=== PATIENT | female | born 1940 | race Caucasian/White ===

== ENCOUNTER 2022-11-27 06:06 | Inpatient (IN) ==
--- NOTE | 2022-10-10 12:06 | PAT Medication Instructions ---
Medication Instructions Date of Service October 10, 2022 Home Medications apixaban 5 mg tablet (Eliquis) 5 mg PO BID aspirin 81 mg tablet,delayed release 81 mg PO QAM atenolol 50 mg tablet 50 mg PO QAM calcium 600 mg capsule 600 mg PO QAM insulin aspart U-100 100 unit/mL subcutaneous solution (Novolog U-100 Insulin aspart) 1 sliding scale dose subcut USEASDIRECTD nitroglycerin 0.4 mg sublingual tablet 0.4 mg sublingual UD PRN cp omega-3 fatty acids 2,000 mg PO QAM pramipexole 0.25 mg tablet 0.5 mg PO QPM ramipril 10 mg capsule 10 mg PO QAM rosuvastatin 10 mg tablet (Crestor) 10 mg PO QAM Continue as directed nitroglycerin 0.4 mg sublingual tablet 0.4 mg sublingual UD PRN cp (if needed) ASK your prescriber and surgeon apixaban 5 mg tablet (Eliquis) 5 mg PO BID STOP taking 2 weeks before surgery omega-3 fatty acids 2,000 mg PO QAM DO NOT take the morning of surgery calcium 600 mg capsule 600 mg PO QAM ramipril 10 mg capsule 10 mg PO QAM Take morning of surgery With a small sip of water, OTHERWISE NOTHING TO EAT OR DRINK AFTER MIDNIGHT: aspirin 81 mg tablet,delayed release 81 mg PO QAM (unless surgeon directed otherwise) atenolol 50 mg tablet 50 mg PO QAM rosuvastatin 10 mg tablet (Crestor) 10 mg PO QAM Take evening before surgery pramipexole 0.25 mg tablet 0.5 mg PO QPM Insulin Dependent Diabetic Patients insulin aspart U-100 100 unit/mL subcutaneous solution (Novolog U-100 Insulin aspart) 1 sliding scale dose subcut USEASDIRECTD (check with prescriber for instructions regarding insulin pump settings for evening prior to and morning of surgery- typically insulin pump is set to basal rate after midnight prior to surgery and no boluses are to be given after midnight day of surgery) Other Notes If you have any questions please call us at [phone] or [phone] or [phone] or [phone]
--- NOTE | 2022-10-17 11:05 | Anesthesiology Consultation ---
Date of Service October 17, 2022 Assessment & Plan (1) Encounter for pre-operative examination: - Check BSG AM DOS - COVID screening: Per assessment on 10/17: No known COVID-19 positive contacts or current COVID-19 related symptoms. Travel screen negative. Patient vaccinated. At surgeon discretion if preop Covid testing being done. - Eliquis instructions: per surgeon/prescriber - Cardiology visit (09/28/22): "Patient presents for preoperative cardiac clearance, follow up of coronary artery disease and paroxysmal atrial fibrillation.. Lexiscan Cardiolite stress test reviewed. This was negative for ischemia or infarct.. Left heart catheterization is not indicated in regard to this study.. Additional cardiac testing is not required prior to surgery. She is does not require any cardiac interventions prior to surgery. She has no evidence of volume overload or heart failure.. She does continue to perform activities at or above 4 METS.. 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 Awaiting most recent carotid imaging (Dr. Alonso Graff/Hakeem mincing machine operator). Chart Review Chart Review: Patient seen in Pre Admission Testing History Surgery Operation Date: 10/31/22 07:45 Proposed Procedures p L4-S1 Decompression and Fusion, Spinal Cord Monitoring - Raúl Figueroa, Height/Weight Height: 5 ft 5 in Weight: 93.3 kg Allergies Allergy/AdvReac Type Severity Reaction Status Date / Time oxycodone [From Percocet] Allergy Mild feels like Verified 10/06/22 13:11 bugs are crawling Medications Home Medications Medication Instructions Recorded Confirmed Last Taken apixaban 5 mg tablet (Eliquis) 5 mg PO BID 10/06/22 10/06/22 Unknown aspirin 81 mg tablet,delayed 81 mg PO QAM 10/06/22 10/06/22 Unknown release atenolol 50 mg tablet 50 mg PO QAM 10/06/22 10/06/22 Unknown calcium 600 mg capsule 600 mg PO QAM 10/06/22 10/06/22 Unknown insulin aspart U-100 100 unit/mL 1 sliding scale dose subcut 10/06/22 10/06/22 Unknown subcutaneous solution (Novolog USEASDIRECTD U-100 Insulin aspart) nitroglycerin 0.4 mg sublingual 0.4 mg sublingual UD PRN cp 10/06/22 10/06/22 Unknown tablet omega-3 fatty acids 2,000 mg PO QAM 10/06/22 10/06/22 Unknown pramipexole 0.25 mg tablet 0.5 mg PO QPM 10/06/22 10/06/22 Unknown ramipril 10 mg capsule 10 mg PO QAM 10/06/22 10/06/22 Unknown rosuvastatin 10 mg tablet (Crestor) 10 mg PO QAM 10/06/22 10/06/22 Unknown Past Medical History Medical History Aortic stenosis Mild aortic stenosis per 08/2022 echo Arthritis CAD (coronary artery disease) Stent x1 (2020) Follows by Vandana Gallardo Diabetes mellitus, type [address] Diabetic neuropathy Diabetic retinopathy has recieved a shot in eye for tx History of COVID-19 2019- 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 loss of taste/smell Hyperlipidemia Hypertension Insulin pump in place Paroxysmal atrial fibrillation Per cardiology records Taking Eliquis Restless leg syndrome Spinal stenosis Exercise / Class Metabolic Activity III < 4 Walking/Shop/Light housework (one FS (no CP, + SOB)) Past Family History Family History Other No family history of adverse response to anesthesia Past Surgical History Surgical History H/O total hysterectomy History of anesthesia reaction slow to wake up History of appendectomy History of colonoscopy History of heart artery stent Stent x1 (2020) History of repair of rotator cuff rt History of tonsillectomy History of tooth extraction Past Anesthesia History No Family Hx of Anesthesia Complications and Other ("slow to wake") History of PONV No Hx of PONV and Hx of Motion Sickness Social History Smoking Status: Never smoker Do You Dip or Chew Tobacco: No Hx Alcohol Use: No substance use type: does not use Review of Systems Patient denies chest pain, shortness of breath, fever, chills, cough, wheezing, palpitations. Physical Exam Vital Signs VITALS BP 128/51 P 62 TEMP WNL SP02 96%RA RESP 18 PHYSICAL Mildly decreased cervical extension range of motion. Full TMJ range of motion. TMD 3.5 finger breaths Mallampati Score 2 Dentition: full upper/lower dentures Lungs: clear throughout to auscultation Cardiac: regular rate and rhythm, distant heart sounds, I/ systolic murmur with faint left sided carotid radiation vs bruit Spine: normal Extremities: no LE edema Short neck Lab Results Anesthesia Preop Results Results Anesthesia Widget: WBC 8.27 K/ul (4.8-10.8) 10/17/22 Hgb 13.1 g/dl (12.0-16.0) 10/17/22 Hct 40.3 % (37.0-47.0) 10/17/22 Plt 226 K/uL (130-400) 10/17/22 Na 138 mmol/L (136-145) 10/17/22 K 4.3 mmol/L (3.5-5.1) 10/17/22 Cl 105 mmol/L (98-107) 10/17/22 CO2 29 mmol/L (21-32) 10/17/22 BUN 22 mg/dl (6-23) 10/17/22 Creat 0.90 mg/dl (0.6-1.2) 10/17/22 Glucose Level 144 mg/dl (70-99(Fasting)) H 10/17/22 PT 10.8 Seconds (9.0-12.0) 10/17/22 PTT 25.2 Seconds (21.0-31.0) 10/17/22 INR 1.0 (0.9-1.1) 10/17/22 HA1c 8.7 % (4.5-5.6) H 10/17/22 Urine Color Yellow 10/17/22 Urine Appearance Clear (Clear) 10/17/22 Urine pH 6.5 (4.5-7.5) 10/17/22 Urine Specific Sumner 1.015 (1.000-1.030) 10/17/22 Urine Protein Negative (Negative) 10/17/22 Urine Glucose (UA) Negative (Negative) 10/17/22 Urine Ketones Negative (Negative) 10/17/22 Urine Blood Negative (Negative) 10/17/22 Urine Nitrite Negative (Negative) 10/17/22 Urine Bilirubin Negative (Negative) 10/17/22 Urine Urobilinogen Negative (Negative) 10/17/22 Urine Leukocyte Esterase Negative (Negative) 10/17/22 Blood Type A Negative 10/17/22 Antibody Screen NEGATIVE 10/17/22 Testing Laboratory Results Surgeon's office made aware of elevated A1C* Electrocardiogram Date: 09/07/22 SB at 59bpm. "Within normal limits" Chest X-Ray Date: 10/17/22 FINDINGS: PA and lateral chest radiographs are obtained. No prior studies are available for comparison at the time of dictation. The cardiomediastinal silhouette is unremarkable noting atherosclerotic calcification of the thoracic aorta. The lungs and pleural spaces are clear noting bibasilar scarring/atelectasis. There is no pneumothorax. The skeletal structures are osteopenic. The bony thorax appears intact. Degenerative change and hyperkyphosis is noted in the thoracic spine. IMPRESSION: No active disease in the chest. Echocardiogram Date: 09/06/22 EF 60 to 65%. Wall motion is normal. No regional motion abnormality. Mild MR. Mild aortic stenosis (TASHI 1.64-1.7cm2, MG 11.0 mmhg). Stress Test Date: 09/26/22 Type: nuclear Myocardial perfusion imaging normal. SPECT images demonstrate normal radiotracer uptake across all myocardial segments during both rest and stress imaging. LVEF 72%. No LV RWMA. Lexiscan stress EKG not indicative of ischemia. Cardiac Catheterization Date: 06/25/20 60 to 70% proximalmid LAD reduced to 0% after PTCA and placement of Xience MISA postdilated with balloon. 30% mid RCA. COVID-19 Risk Screen Screening Information COVID-19 Screen Date: 10/17/22 Exposure 21 Days Family/Household +COVID Last 21 Days: No Exposure 10 Days Any COVID Exposure Last 10 Days: No Symptoms Last 10 Days Experienced COVID Sx Last 10 Days: No + COVID 0-90 Days COVID + in Last 0-90 Days: No
[~2022-11-27 06:06] MED LIST: CeleBREX 200 MG CAP PO SCH; GABAPENTIN 300 MG CAP PO SCH; LR 15ML/HR IV SCH; ceFAZolin 2000MG 2,000 MG/15 ML SYR IV SCH
[2022-11-27] MEDS ORDERED: ATROPINE SULFATE 0.1 MG/ML 10ML SYR IV PRN (06:44)
[2022-11-27] MEDS ORDERED: ePHEDrine sulfate 50 MG/ML AMP IV PRN (06:44)
[2022-11-27] MEDS ORDERED: ONDANSETRON INJ 2 MG/ML 2 ML VIAL IV PRN ×2 (06:44→11:04)
[2022-11-27] MEDS ORDERED: DEXAMETHASONE SOD INJ 4 MG/ML VIAL ONE (06:51)
[2022-11-27] MEDS ORDERED: ROCURONIUM BROMIDE 10 MG/ML 5 ML VIAL IV ONE ×3 (06:51→08:13)
[2022-11-27] MEDS ORDERED: ONDANSETRON INJ 2 MG/ML 2 ML VIAL ONE (06:51)
[2022-11-27] MEDS ORDERED: PROPOFOL IV EMULSION 10 MG/ML 20 ML VIAL IV ONE (06:51)
[2022-11-27] MEDS ORDERED: fentaNYL citrate PF 100 MCG/2 ML VIAL ONE (06:51)
[2022-11-27] MEDS ORDERED: LIDOCAINE 2% 2 ML VIAL/AMP(20MG/ML) INFIL ONE ×2 (06:51)
[2022-11-27] MEDS ORDERED: SUGAMMADEX SODIUM 200 MG/2 ML VIAL IV ONE (06:51)
[2022-11-27] MEDS ORDERED: MIDAZOLAM HCL 1 MG/ML 2ML VIAL ONE (06:51)
[2022-11-27] MEDS ORDERED: BUPIVACAINE/EPINEPHRINE 0.25% 1:200,000 30 ML VIAL ONE (06:57)
[2022-11-27] MEDS ORDERED: ceFAZolin 330 MG/ML 1 GM VIAL ONE (06:57)
--- NOTE | 2022-11-27 07:32 | History & Physical Bridge Note ---
Date of Service November 27, 2022 History & Physical Bridge Note I have examined the patient, reviewed the History & Physical and in the interval since the performance of the History & Physical I have noted the following changes of clinical significance: no changes noted
--- NOTE | 2022-11-27 07:34 | History & Physical Report ---
Date of Service November 27, 2022 Assessment & Plan (1) Neurogenic claudication due to lumbar spinal stenosis: Plan: L4-S1 decompression and fusion History of Present Illness Chief Complaint: Back and leg pain Primary Care Provider: Kymberly Lawson This is an 82-year-old female who presents with persistent back and leg pain after failing since course of nonoperative care she is here for surgical invention. Allergies Allergy/AdvReac Type Severity Reaction Status Date / Time oxycodone [From Percocet] Allergy Mild feels like Verified 11/27/22 06:24 bugs are crawling Home Medications Medication Instructions Recorded Confirmed Type apixaban 5 mg tablet (Eliquis) 5 mg PO BID 10/06/22 11/27/22 History aspirin 81 mg tablet,delayed 81 mg PO QAM 10/06/22 11/27/22 History release atenolol 50 mg tablet 50 mg PO QAM 10/06/22 11/27/22 History calcium 600 mg capsule 600 mg PO QAM 10/06/22 11/27/22 History insulin aspart U-100 100 unit/mL 1 sliding scale dose subcut 10/06/22 11/27/22 History subcutaneous solution (Novolog USEASDIRECTD U-100 Insulin aspart) nitroglycerin 0.4 mg sublingual 0.4 mg sublingual UD PRN cp 10/06/22 11/27/22 History tablet omega-3 fatty acids 2,000 mg PO QAM 10/06/22 11/27/22 History pramipexole 0.25 mg tablet 0.5 mg PO QPM 10/06/22 11/27/22 History ramipril 10 mg capsule 10 mg PO QAM 10/06/22 11/27/22 History rosuvastatin 10 mg tablet (Crestor) 10 mg PO QAM 10/06/22 11/27/22 History Past Med/Surg History Medical History Aortic stenosis Mild aortic stenosis per 08/2022 echo Arthritis CAD (coronary artery disease) Stent x1 (2020) Follows by Vandana Gallardo Diabetes mellitus, type [address] Diabetic neuropathy Diabetic retinopathy has recieved a shot in eye for tx 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 Hyperlipidemia Hypertension Insulin pump in place Paroxysmal atrial fibrillation Per cardiology records Taking Eliquis Restless leg syndrome Spinal stenosis Surgical History H/O total hysterectomy History of anesthesia reaction slow to wake up History of appendectomy History of colonoscopy History of heart artery stent Stent x1 (2020) History of repair of rotator cuff rt History of tonsillectomy History of tooth extraction Family History Other No family history of adverse response to anesthesia Social History Smoking Status: Never smoker Second Hand Exposure: No; Do You Dip or Chew Tobacco: No; Hx Alcohol Use: No 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
[2022-11-27] MEDS ORDERED: FLOSEAL HEMOSTATIC MATRIX 10ML TOP ONE (08:21)
--- NOTE | 2022-11-27 09:51 | Operative Report ---
Post Operative Report Pre & Post Diagnosis Operation Date: 11/27/22 07:45 Pre-Op Diagnosis: Lumbar Region Spinal Stenosis with Neurogenic Claudication Post-Op Diagnosis: Lumbar Region Spinal Stenosis with Neurogenic Claudication I identified the patient and participated in the time-out.: Yes Procedure Operation Date: 11/27/22 07:45 Actual Procedures 1. Lumbar decompression bilaterally facetectomies and foraminotomies L3-L4, L4- 5 and L5-S1. #2 posterior spinal fusion L4-L5 L5-S1. #3 placed posterior instrumentation L4-S1. #4 interbody fusion L4-5. #5 placement Spira 12 x 26 mm at L4-5 per #6 placement locally harvested morselized autograft and posterior gutters. #7 placement of I factor plan of the test interbody space and posteri or gutters. Surgeon Raúl Figueroa, DO Transportation Escort none Estimated Blood Loss 100 Findings See Below Patient is 5 foot 5 weighing over 93 kg with a BMI in excess of 34. Patient's body of this did contribute to significant technical difficulty required deepest retractors and longer instruments in order to perform her procedure. This at least 50% increased operative time. Specimens none Indications This is an 82-year-old female who presents above-mentioned diagnosis after failing since course of nonoperative care is here for surgical invention. Description of Procedure Patient was met with identified informed consent obtained. Patient was then taken to the operative suite underwent a patient placed in a prone position the [facility] top Donte frame. All bony promises well-padded eyes inspected to ensure no external pressure placed upon the. This point lumbar spine was prepped and draped in a sterile fashion. Sharp dissection with the assistance of Bovie cautery form down to and exposing the lamina and transverse processes of L4-L5 and the sacral ala bilaterally. From caudal to cephalad fashion complete laminectomy of L5 L4 partial laminectomy of L3 was performed including bilateral medial facetectomies and foraminotomies addressing severe spinal stenosis. Pedicle screws were then placed in L4-L5 and S1 levels bilaterally with assistance of fluoroscopy and the properly sized duane placed. By way of transforaminal approach on the right a complete discectomy of L4-L5 was per formed endplates guided to subcortically bone and a 12 x 26 mm Spira cage with I factor tapped in position. The rods were then locked into final position bilaterally. The transverse processes of L4-5 and the sacral ala burred to subcortical bleeding bone. I factor bone of the test and locally harvested morselized autograft was placed in the posterior gutters. 15 round KHANH drain inserted. The incision was then closed with 1 Vicryl to fascia 2-0 Vicryl subcutaneously and 4 Monocryl for final skin closure. Steri-Strips sterile dressing placed. Patient waken taken to PACU stable condition. Please note spinal cord monitoring visualized at the procedure no changes noted. I attest to the content of the Intraoperative Record and any orders documented therein. Any exceptions are noted below.
[2022-11-27] MEDS: fentaNYL citrate PF 100 MCG/2 ML VIAL IV PRN ×4 (10:04→10:25)
--- NOTE | 2022-11-27 10:17 | Fluoroscopy Report ---
FL lumbar spine 2-3V CLINICAL HISTORY: L4-S1 DECOMPRESSION FUSION WITH INTERBODY COMPARISON STUDY: None. FLUOROSCOPY TIME: 25 seconds FLUOROSCOPY IMAGES: 2 Ka,r: 17.3 mGy FINDINGS: Posterior decompression and fusion from L4 through S1 with pedicle screws and rods. The wai dware appears intact. An L4-[address]. IMPRESSION: Fluoroscopic assistance as above. ACT 112: Negative or not required by law. Electronically signed by: Christophe Arroyo M.D. 11/27/2022 10:15 AM
--- NOTE | 2022-11-27 11:01 | Anesthesiology Progress Note ---
Date of Service November 27, 2022 Anesthesia Post Procedure Vital Signs Vital Signs: Temp Pulse Pulse Resp BP Pulse Ox O2 Del Method 11/27/22 10:50 98.1 F 55 L 13 135/58 L 99 Nasal Cannula 11/27/22 10:20 55 L 10 L 139/45 L 100 Oxymask 11/27/22 10:10 98.1 F 56 L 10 L 144/59 H 100 Oxymask 11/27/22 10:40 98.1 F 54 L 11 L 120/47 L 91 Nasal Cannula 11/27/22 10:30 59 L 12 123/54 L 100 Oxymask 11/27/22 10:00 98.1 F 58 L 12 140/66 99 Oxymask 11/27/22 09:54 98.1 F 67 12 128/46 L 99 Oxymask 11/27/22 06:28 Room Air 11/27/22 06:28 97.7 F 65 18 140/60 98 Room Air O2 Flow Rate 11/27/22 10:50 2 11/27/22 10:20 3 11/27/22 10:10 3 11/27/22 10:40 2 11/27/22 10:30 2 11/27/22 10:00 4 11/27/22 09:54 5 11/27/22 06:28 11/27/22 06:28 Pain Intensity Back: Pain Intensity: 5 Transfer of Care Handoff Completed per policy Notes Mental Status: alert / awake / arousable and participated in evaluation Patient Amnestic to Procedure: Yes Nausea / Vomiting: adequately controlled Pain: adequately controlled Airway Patency, RR, SpO2: stable & adequate BP & HR: stable & adequate Hydration State: stable & adequate Anesthetic Complications: no major complications apparent and Pt Satisfied with anesthetic care
[2022-11-27] MEDS ORDERED: hydrOXYzine HCl 25 MG TAB PO PRN (11:04)
[2022-11-27] MEDS ORDERED: traMADol HCL 50 MG TABLET PO PRN (11:04)
[2022-11-27] MEDS ORDERED: NITROGLYCERIN SL 0.4 MG/TAB TAB SL PRN (11:04)
[2022-11-27] MEDS ORDERED: FAMOTIDINE 20 MG TAB PO PRN (11:04)
[2022-11-27] MEDS ORDERED: ACETAMINOPHEN 500 MG TAB PO PRN (11:04)
[2022-11-27] MEDS ORDERED: SOD PHOSPHATE/SOD BIPHOSPHATE ENEMA 132 ML BTL PR PRN (11:04)
[2022-11-27] MEDS ORDERED: bisacodyL 10 MG SUPP PR PRN (11:04)
[2022-11-27] MEDS ORDERED: NALOXONE HCL 0.4 MG/1 ML VIAL/CARP IV PRN (11:04)
[2022-11-27] MEDS ORDERED: DO NOT ADMINISTER FLU VACCINE PRN (11:04)
[2022-11-27] MEDS ORDERED: PROMETHAZINE HCL 12.5 MG in SODIUM CHLORIDE 0.9% 50 ML IV PRN (11:04)
[2022-11-27] MEDS ORDERED: DO NOT ADMINISTER PNEUMOCOCCAL VACCINE PRN (11:04)
[2022-11-27] MEDS ORDERED: diphenhydrAMINE Capsule 25 MG CAP PO PRN (11:04)
[2022-11-27] MEDS ORDERED: ACETAMINOPHEN 1,000 MG/100 ML VIAL IV PRN (11:04)
[2022-11-27] MEDS ORDERED: MAGNESIUM HYDROXIDE SUSP 30 ML UDC PO PRN (11:04)
[2022-11-27] MEDS ORDERED: PHARMACY GLYCEMIC MGMT CONSULT PRN (11:04)
[2022-11-27] MEDS ORDERED: ALUMINUM/MAGNESIUM SUSP 30 ML UDC PO PRN (11:04)
[2022-11-27] MEDS ORDERED: LORazepam 0.5 MG TAB PO PRN (11:04)
[2022-11-27] MEDS ORDERED: ONDANSETRON 4 MG OD TAB PO PRN (11:04)
[2022-11-27] MEDS ORDERED: LORazepam 2 MG/1 ML VIAL IV PRN (11:04)
[2022-11-27] MEDS ORDERED: METOCLOPRAMIDE HCL INJ 5 MG/ML 2 ML VIAL IV PRN (11:04)
[2022-11-27] MEDS ORDERED: HYDROmorphone INJ 0.5 MG/0.5 ML SYR IV PRN (11:04)
[2022-11-27] MEDS: HYDROmorphone INJ 1 MG/ML SYRINGE IV PRN ×2 (11:56→20:19)
[2022-11-27] MEDS: SODIUM CHLORIDE 0.9% 1000ML 1,000 ML IV SCH ×2 (11:56→20:26)
[2022-11-27] MEDS ORDERED: CARBOHYDRATES FOR HYPOGLYCEMIA PO PRN ×2 (12:09→12:15)
[2022-11-27] MEDS ORDERED: DEXTROSE 50% 50 ML SYRINGE IV PRN ×2 (12:09→12:15)
[2022-11-27] MEDS ORDERED: GLUCOSE 10 TAB/TUBE PO PRN ×2 (12:09→12:15)
[2022-11-27] MEDS ORDERED: GLUCOSE 40% GEL 15 GM TUBE PO PRN ×2 (12:09→12:15)
[2022-11-27] MEDS ORDERED: GLUCAGON FOR INJ 1 MG VIAL IM PRN (12:15)
[2022-11-27] MEDS ORDERED: LANTUS PER UNIT CHARGE SC ONE (12:15)
--- NOTE | 2022-11-27 12:18 | Consultation ---
Date of Consultation November 27, 2022 Assessment & Plan (1) Neurogenic claudication due to lumbar spinal stenosis: Post op consultation for Lumbar decompression surgery and fusion L5-S1 Pain management with dilaudid (2) Paroxysmal atrial fibrillation: Eliquis (3) CAD (coronary artery disease): Continue asa and atenolol (4) Aortic stenosis: noted echo findings of mild aortic stenosis (5) Diabetes mellitus, type 2: will continue sliding scale will give lantus 10 units sc qhs (6) Encounter for pre-operative examination: Plan Will continue to follow this patient along with you. I spent a total of 55 minutes reviewing notes, outpatient records, labs, medication, coordinating, documenting and providing care for this patient excluding time spent in the performance of separately billed services. History of Present Illness Requesting Physician: Dr Figueroa Reason for Consultation: Post op consultation for management for management of l5-s1 decompression surgery ( claudication pain Attending Physician: Raúl Figueroa, DO History of Present Illness 82 year old female for post management of l5-S1 claudication for decompression and fusion surgery. Patient has significant past medical history of Cad, spinal stenosis, type 2 diabetes mellitus on insulin pump at this time , hypertension ,dyslipidemia and aortic stenosis. Patient was seen at bedside immediately post op and noted to have significant pain 10/10 intensity . She is on dilaudid round the clock and was given the pain med. She does not want to be on insulin pump and will be on Insulin sq ac hs. Denies any chest pain, shortness of breath. Allergies Allergy/AdvReac Type Severity Reaction Status Date / Time oxycodone [From Percocet] Allergy Mild feels like Verified 11/27/22 06:24 bugs are crawling Home Medications Medication Instructions Recorded Confirmed Type apixaban 5 mg tablet (Eliquis) 5 mg PO BID 10/06/22 11/27/22 History aspirin 81 mg tablet,delayed 81 mg PO QAM 10/06/22 11/27/22 History release atenolol 50 mg tablet 50 mg PO QAM 10/06/22 11/27/22 History calcium 600 mg capsule 600 mg PO QAM 10/06/22 11/27/22 History insulin aspart U-100 100 unit/mL 1 sliding scale dose subcut 10/06/22 11/27/22 History subcutaneous solution (Novolog USEASDIRECTD U-100 Insulin aspart) nitroglycerin 0.4 mg sublingual 0.4 mg sublingual UD PRN cp 10/06/22 11/27/22 History tablet omega-3 fatty acids 2,000 mg PO QAM 10/06/22 11/27/22 History pramipexole 0.25 mg tablet 0.5 mg PO QPM 10/06/22 11/27/22 History ramipril 10 mg capsule 10 mg PO QAM 10/06/22 11/27/22 History rosuvastatin 10 mg tablet (Crestor) 10 mg PO QAM 10/06/22 11/27/22 History Patient History Medical History (Updated 11/27/22 @ 12:29 by Bennett Hudson MD) Aortic stenosis Mild aortic stenosis per 08/2022 echo Arthritis CAD (coronary artery disease) Stent x1 (2020) Follows by Vandana Gallardo Diabetes mellitus, type [address] Diabetic neuropathy Diabetic retinopathy has recieved a shot in eye for tx 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 Hyperlipidemia Hypertension Insulin pump in place Paroxysmal atrial fibrillation Per cardiology records Taking Eliquis Restless leg syndrome Spinal stenosis Surgical History H/O total hysterectomy History of anesthesia reaction slow to wake up History of appendectomy History of colonoscopy History of heart artery stent Stent x1 (2020) History of repair of rotator cuff rt History of tonsillectomy History of tooth extraction Family History Other No family history of adverse response to anesthesia Social History Smoking Status: Never smoker Second Hand Exposure: No; Do You Dip or Chew Tobacco: No; Hx Alcohol Use: No Hx Substance Use: No Preferred Language: Vietnamese Yacht Hand Required: No Beliefs That Will Affect Care: None Current Living Situation: Spouse Current Living Situation Comment: House- 3 stories Feels Safe at Home: Yes Safety Concerns: Feels Safe At This Time Assistive Devices: Denture - Upper, Denture - Lower and Glasses Review of Systems Review of Systems: Reviewed all systems as noted in H/P , rest reviewed as negative Physical Exam Physical Exam: HEENT:No JVD , Normocephalic , atraumatic somnolent at this time after getting her pain meds. CV: S1/S2+ , significant systolic murmur+ Resp: Air entry present bilaterally.no crackles, no wheeze . GI: Abdomen soft non tender . Musculoskeletal: examined for joint tenderness. Skin: no rashes Psych: Normal affect Neuro: Patient is awake alert not in distress , No focal neuro deficits noted Ext: no edema. Results & Data Vital Signs (Past 12 Hours) Vital Signs Temp Pulse Pulse Pulse Resp BP Pulse Ox 11/27/22 12:02 61 14 127/61 94 11/27/22 11:18 36.4 C L 76 18 113/63 97 11/27/22 11:34 54 L 16 133/48 L 97 11/27/22 11:15 11/27/22 11:05 36.5 C 63 14 136/49 L 97 11/27/22 10:50 36.7 C 55 L 13 135/58 L 99 11/27/22 10:20 55 L 10 L 139/45 L 100 11/27/22 10:10 36.7 C 56 L 10 L 144/59 H 100 11/27/22 10:40 36.7 C 54 L 11 L 120/47 L 91 11/27/22 10:30 59 L 12 123/54 L 100 11/27/22 10:00 36.7 C 58 L 12 140/66 99 11/27/22 09:54 36.7 C 67 12 128/46 L 99 11/27/22 06:28 11/27/22 06:28 36.5 C 65 18 140/60 98 O2 Del Method O2 Flow Rate 11/27/22 12:02 Nasal Cannula 2 11/27/22 11:18 Nasal Cannula 2 11/27/22 11:34 Room Air 11/27/22 11:15 Nasal Cannula 2 11/27/22 11:05 Nasal Cannula 2 11/27/22 10:50 Nasal Cannula 2 11/27/22 10:20 Oxymask 3 11/27/22 10:10 Oxymask 3 11/27/22 10:40 Nasal Cannula 2 11/27/22 10:30 Oxymask 2 11/27/22 10:00 Oxymask 4 11/27/22 09:54 Oxymask 5 11/27/22 06:28 Room Air 11/27/22 06:28 Room Air Laboratory Results Abnormal Labs 11/27/22 11/27/22 11/27/22 06:26 06:27 09:59 POC Glucose 151 H 189 H Crossmatch See Detail 11/27/22 11:51 POC Glucose 264 H Crossmatch Laboratory Results POC Glucose 264 mg/dl (70-99) H 11/27/22 11:51 SARS-CoV-2, RNA, NAAT NEGATIVE (NEGATIVE) 11/27/22 Unknown Blood Type A Negative 11/27/22 06:27 Antibody Screen NEGATIVE 11/27/22 06:27 Crossmatch See Detail 11/27/22 06:27 Impressions Lumbar Spine X-Ray 11/27/22 07:45 FL lumbar spine 2-3V CLINICAL HISTORY: L4-S1 DECOMPRESSION FUSION WITH INTERBODY COMPARISON STUDY: None. FLUOROSCOPY TIME: 25 seconds FLUOROSCOPY IMAGES: 2 Ka,r: 17.3 mGy FINDINGS: Posterior decompression and fusion from L4 through S1 with pedicle screws and rods. The hardware appears intact. An L4-[address] IMPRESSION: Fluoroscopic assistance as above. ACT 112: Negative or not required by law. Electronically signed by: Christophe Arroyo M.D. 11/27/2022 10:15 AM Diagnostic Findings Celecoxib (Celebrex 200 Mg Cap) 200 mg PO PREOP JEREMIAH Stop: 11/27/22 18:00 Last Admin: 11/27/22 06:51 Dose: 200 mg Documented By: CATALINA Fentanyl Citrate (Fentanyl Citrate Pf 100 Mcg/2 Ml Vial) 50 mcg IV Q5M PRN PRN Reason: PACU Use Only-Pain Stop: 11/27/22 14:45 Last Admin: 11/27/22 10:25 Dose: 50 mcg Documented By: Admin: 11/27/22 10:20 Dose: 50 mcg Documented By: Admin: 11/27/22 10:09 Dose: 50 mcg Documented By: Admin: 11/27/22 10:04 Dose: 50 mcg Documented By: SARAH Gabapentin (Gabapentin 300 Mg Cap) 300 mg PO PREOP JEREMIAH Stop: 11/27/22 18:00 Last Admin: 11/27/22 06:51 Dose: 300 mg Documented By: CATALINA Hydromorphone HCl (Hydromorphone Inj 1 Mg/Ml Syringe) 1 mg IV Q3H PRN PRN Reason: SEVERE Pain (Scale 7,8,9,10) Stop: 12/11/22 11:03 Last Admin: 11/27/22 11:56 Dose: 1 mg Documented By: OZIEL Lactated Ringer's (Lr) 1,000 mls @ 15 mls/hr IV .Q24H JEREMIAH Stop: 11/28/22 05:59 Last Infusion: 11/27/22 07:41 Dose: 0 mls/hr Documented By: Admin: 11/27/22 06:51 Dose: 15 mls/hr Documented By: CATALINA Cefazolin Sodium (Ancef 2000mg) 2,000 mg in 15 mls @ 3.75 mls/min IV PREOP JEREMIAH; Protocol Stop: 11/27/22 18:00 Last Admin: 11/27/22 07:40 Dose: 3.75 mls/min Documented By: [id number] Sodium Chloride (Nss 1000ml) 1,000 mls @ 100 mls/hr IV .Q10H JEREMIAH Stop: 12/27/22 11:03 Last Admin: 11/27/22 11:56 Dose: 100 mls/hr Documented By: OZIEL
[2022-11-27] MEDS: INSULIN ASPART PER UNIT CHARGE SC SCH ×4 (13:21→23:54)
--- NOTE | 2022-11-27 15:02 | Pharmacy Report ---
Pharmacy Glycemic Short Note 2 - Date of Service November 27, 2022 - Glycemic Short BSG Results (Last 24 hours): 11/27/22 11/27/22 11/27/22 06:26 09:59 11:51 POC Glucose 151 H 189 H 264 H OUTPATIENT ANTIDIABETIC REGIMEN: * Insulin pump 2.7 units/hr 0604-9367 + 9067-9434; 3.0 units/hr 7862-5739 (total of 66 units/hr) ... CF 50; CR 12 * HbA1C = ~8% (patient reported) ASSESSMENT: * Ms Patel is an 82 y/o F with a PMH of T2Dm who presents for spinal surgery. Patient is POD 0 and received dex 12 mg IV intraoperatively. Pump was removed prior to surgery. * This pharmacist interviewed the patient and obtained above values from her insulin pump. It appears patient's regimen is very basal heavy. * Will start with weight-based stress of 3 Lantus + extra 20% for steroid coverage. * Novolog weight-based stress of 3 * overnight checks added. PLAN FOR INPATIENT GLYCEMIC CONTROL: * Basal insulin * Lantus 55 units SQ x 1 and re-evaluate tomorrow * Bolus insulin * NovoLog per scale ACHS or Q6hrs while NPO * Goal Range: Low 110 mg/dL - High 140 mg/dL * Correction Factor: 15 mg/dL/unit * Nutritional / Prandial insulin per carb ratio of 1 unit per 5 grams CHO consumed
[2022-11-27] MEDS: HYDROCODONE/ACETAMOPHEN 5/325MG TAB PO PRN (15:27)
[2022-11-27] MEDS: ceFAZolin 2000MG 2,000 MG/15 ML SYR IV SCH ×2 (15:31→23:54)
[2022-11-27] MEDS ORDERED: INSULIN ASPART PER UNIT CHARGE SC SCH (16:30)
[2022-11-27] MEDS: PRAMIPEXOLE DIHYDROCHLO 0.5 MG TAB PO SCH (20:19)
[2022-11-27] MEDS: DOCUSATE SODIUM/SENNA 50/8.6MG TAB PO SCH (20:19)
[2022-11-28] MEDS: INSULIN ASPART PER UNIT CHARGE SC SCH ×5 (04:07→20:19)
[2022-11-28] MEDS: POLYETHYLENE (MIRALAX) 17 GM PACK PO SCH ×4 (05:20→23:15)
[2022-11-28] MEDS: HYDROCODONE/ACETAMOPHEN 5/325MG TAB PO PRN ×3 (05:32→22:02)
[2022-11-28 07:44] LABS: Basophils # (auto) 0.04 K/uL (0-0.2); Basophils % (auto) 0.3 %; Eosinophils # (auto) 0.04 K/uL (0-0.50); Eosinophils % (auto) 0.3 %; Hematocrit (blood only) 29.4 % (37.0-47.0); Hemoglobin 9.8 g/dl (12.0-16.0); Immature Granulocytes # (auto) 0.08 K/uL (0.01-0.20); Immature Granulocytes % (auto) 0.6 %; Lymphocytes % (auto) 17.1 %; Mean Corpuscular Hemoglobin 28.2 pg (25.0-34.0); Mean Corpuscular Hgb Conc 33.3 g/dL (32.0-36.0); Mean Corpuscular Volume 84.5 fL (80.0-100.0); Mean Platelet Volume 9.8 fL (9.4-12.4); Monocytes # (auto) 0.94 K/uL (0.11-0.59); Monocytes % (auto) 7.3 %; Neutrophils # (auto) 9.54 K/uL (1.40-6.50); Neutrophils % (auto) 74.4 %; Platelet Count 223 K/uL (130-400); RDW Standard Deviation 42.9 fL (36.4-46.3); Red Blood Count 3.48 M/uL (4.20-5.40); White Blood Count 12.84 K/ul (4.8-10.8)
[2022-11-28 07:51] LABS: Estimated Average Glucose 180 mg/dl; Hemoglobin A1C 7.9 % (4.5-5.6)
[2022-11-28 07:55] LABS: BUN Creatinine Ratio 33.7 (10-20); Calcium 8.4 mg/dl (8.6-10.3); Creatinine Clr Calc Pharmacy 50.8 ml/min; Est GFR (African American) 62.7 ml/min; Est GFR (Non-African American) 54.1 ml/min; Potassium 4.3 mmol/L (3.5-5.1)
[2022-11-28] MEDS: ROSUVASTATIN CALCIUM 10 MG TAB PO SCH (08:55)
[2022-11-28] MEDS: dexAMETHasone 6 MG in SYRINGE 0 ML IV SCH (08:56)
[2022-11-28] MEDS: ASPIRIN 81 MG ECTAB PO SCH (08:56)
[2022-11-28] MEDS: CALCIUM 600MG + VIT D 400 IU TAB PO SCH (08:56)
[2022-11-28] MEDS ORDERED: LANTUS PER UNIT CHARGE SC ONE (09:00)
[2022-11-28] MEDS ORDERED: ENALAPRIL MALEATE 10 MG TAB PO SCH (09:00)
[2022-11-28] MEDS: ATENOLOL 50 MG TABLET PO SCH (09:03)
--- NOTE | 2022-11-28 09:47 | Hospitalist Progress Note ---
Date of Service November 28, 2022 Assessment & Plan (1) Neurogenic claudication due to lumbar spinal stenosis: Plan: Post op consultation for Lumbar decompression surgery and fusion L4-S1 POD # [address] Figueroa tolerated procedure well pain/wound management per ortho, KHANH drain management per ortho encourage incentive spirometry Cath to be removed later today (2) Acute postoperative anemia due to expected blood loss: Plan: preop hgb 13.0 post op day 1, hgb 9.8 monitor closely and drainage output, EBL 100ml; KHANH drain thus far 415ml (3) Paroxysmal atrial fibrillation: Plan: Eliquis resume at discretion of Dr. Figueroa continue atenolol (4) CAD (coronary artery disease): Plan: Continue asa and atenolol (5) Diabetes mellitus, type 2: Plan: Glycemic pharmacy on board, appreciate management Continue Lantus/NovoLog per protocol Patient did receive dexamethasone today A1c 7.9, given age goal less than 8 (6) Aortic stenosis: Plan: noted echo findings of mild aortic stenosis euvolemic on exam (7) Hypertension: Plan: blood pressure on lower side will hold enalapril for now, parameters on atenolol DVT ppx: SCDS for now, will need to resume eliquis at discretion of ortho Pt was seen and examined in collaboration with Dr. Beaulieu, please see addendum Thank you for this consultation. We will follow the patient with you during their hospital stay. You can reach a member of the [facility] Hospitalist Team 04/12 via hospitalist role on tiger text. Admission and Anticipated Discharge Date Admission Date: November 27, 2022 Supervising Physician Co-Signing Physician Notes Patient is seen and examined at bedside. Sitting in chair during my encounter. Denies any significant back pain at surgical site. Also denies any chest pain, nausea, vomiting abdominal pain. No bowel movement today. On exam patient is obese, no apparent distress, normocephalic/atraumatic, EOMI, normal breath so unds, clear to auscultation, S1-S2,+ murmur, no pedal edema, abdomen soft, nontender, normal bowel sounds,+back-surgical site in dressing+ drain, alert, awake, oriented, grossly no focal deficits. S/P lumbar decompression fusion surgery by Dr. Figueroa for neurogenic claudication of lumbar spinal stenosis. Postoperative acute blood loss anemia. Monitor CBC. No transfusion of PRBCs needed currently. Resume anticoagulation as able for paroxysmal atrial fibrillation. Continue bowel regimen to prevent constipation. Agree with holding enalapril for now. I personally reviewed the record. Patient is interviewed and examined at bedside. Patient's care is coordinated with Sandy Meyers PA-C. Please refer to the documentation above for details of patient's presentation and for discussion of other issues. Subjective Patient was seen and examined in room 300. Follow-up lumbar decompression fusion by Dr. Figueroa. She states she has been sitting up in her chair since 5 AM. She felt lightheaded this morning denies feeling of passing out. Blood pressure has been stable but on the lower side. She denies vertigo, chest pain, palpitations, diaphoresis, nausea, vomiting, abdominal pain. She tolerated breakfast. Has not yet passed flatus. Continues to have Turner catheter in place. Review of Systems Review of Systems: All systems reviewed & are unremarkable except as noted in HPI & below Physical Exam Physical Exam: Gen: WD/WN, NAD, A&O x3 HEENT: Normocephalic, atraumatic, conjunctivae moist, sclerae anicteric, mucous membranes moist. Lung: Clear to Auscultation bilaterally, no wheezes/rales/rhonchi Heart: Regular rate, regular rhythm, 2/6 savanna noted rusb, no rubs, or gallops Abdomen: Soft, NT, ND +BS x 4 Extremities: No edema Skin: Warm, no rash, negative turgor. : + turner draining yellow urine Results & Data Results & Data Vital Signs (Past 12 Hours) Vital Signs Temp Pulse Pulse Resp BP Pulse Ox O2 Del Method 11/28/22 08:00 Room Air 11/28/22 08:55 81 108/55 L 11/28/22 07:10 36.4 C L 61 18 114/63 95 Room Air 11/28/22 04:00 36.6 C 57 L 16 115/55 L 96 Room Air 11/27/22 23:50 36.6 C 85 18 115/58 L 98 Room Air Medications Administered Current Inpatient Medications Acetaminophen (Acetaminophen 500 Mg Tab) 1,000 mg PO Q8H PRN PRN Reason: MILD Pain Scale 1,2,3 & Pre PT Stop: 12/27/22 11:03 Hydrocodone Bitart/Acetaminophen (Hydrocodone/Acetamophen 5/325mg Tab) 1 - 2 tab PO Q4H PRN PRN Reason: Pain & Pre PT Stop: 12/11/22 11:03 Last Admin: 11/28/22 05:32 Dose: 2 tab Al Hydrox/Mg Hydrox/Simethicone (Aluminum/Magnesium Susp 30 Ml Udc) 30 ml PO Q6H PRN PRN Reason: Dyspepsia Stop: 12/27/22 11:03 Aspirin (Aspirin 81 Mg Ectab) 81 mg PO [facility] Stop: 12/28/22 08:59 Last Admin: 11/28/22 08:56 Dose: 81 mg Atenolol (Atenolol 50 Mg Tablet) 50 mg PO [facility] Stop: 12/28/22 08:59 Last Admin: 11/28/22 09:03 Dose: Not Given Bisacodyl (Bisacodyl 10 Mg Supp) 10 mg AR DAILY PRN PRN Reason: Constipation Stop: 12/27/22 11:03 Calcium/Vitamin D (Calcium 600mg + Vit D 400 Iu Tab) 1 tab PO [facility] Stop: 12/28/22 08:59 Last Admin: 11/28/22 08:56 Dose: 1 tab Dextrose (Dextrose 50% 50 Ml Syringe) 25 - 50 ml IV UD PRN; Protocol PRN Reason: Hypoglycemia Protocol Stop: 12/27/22 12:14 Dextrose (Dextrose 50% 50 Ml Syringe) 25 - 50 ml IV UD PRN; Protocol PRN Reason: Hypoglycemia Protocol Stop: 12/27/22 12:08 Diphenhydramine HCl (Diphenhydramine Capsule 25 Mg Cap) 25 mg PO Q6H PRN PRN Reason: Allergic Rhinitis/Insomnia Stop: 12/27/22 11:03 Enalapril Maleate (Enalapril Maleate 10 Mg Tab) 40 mg PO [facility] Stop: 12/28/22 08:59 Famotidine (Famotidine 20 Mg Tab) 20 mg PO Q12H PRN PRN Reason: Dyspepsia Stop: 12/27/22 11:03 Glucagon (Glucagon For Inj 1 Mg Vial) 1 mg IM UD PRN; Protocol PRN Reason: Hypoglycemia Protocol Stop: 12/27/22 12:14 Glucose (Glucose 40% Gel 15 Gm Tube) 15 - 30 gm PO UD PRN; Protocol PRN Reason: Hypoglycemia Protocol Stop: 12/27/22 12:14 Glucose (Glucose 10 Tab/Tube) 4 - 8 tab PO UD PRN; Protocol PRN Reason: Hypoglycemia Protocol Stop: 12/27/22 12:14 Glucose (Glucose 10 Tab/Tube) 4 - 8 tab PO UD PRN; Protocol PRN Reason: Hypoglycemia Treatment Stop: 12/27/22 12:08 Glucose (Glucose 40% Gel 15 Gm Tube) 15 - 30 gm PO UD PRN; Protocol PRN Reason: Hypoglycemia Protocol Stop: 12/27/22 12:08 Hydromorphone HCl (Hydromorphone Inj 0.5 Mg/0.5 Ml Syr) 0.5 mg IV Q3H PRN PRN Reason: MODERATE Pain (Scale 4,5,6) & Pre PT Stop: 12/11/22 11:03 Hydromorphone HCl (Hydromorphone Inj 1 Mg/Ml Syringe) 1 mg IV Q3H PRN PRN Reason: SEVERE Pain (Scale 7,8,9,10) Stop: 12/11/22 11:03 Last Admin: 11/27/22 20:19 Dose: 1 mg Hydroxyzine HCl (Hydroxyzine Hcl 25 Mg Tab) 25 mg PO Q8H PRN PRN Reason: Anxiety Stop: 12/27/22 11:03 Promethazine HCl 12.5 mg/ (Sodium Chloride) 50.5 mls @ 202 mls/hr IV Q6H PRN PRN Reason: Nausea &/or Vomiting Stop: 12/27/22 11:03 Acetaminophen (Ofirmev) 1,000 mg in 100 mls @ 400 mls/hr IV Q8H PRN PRN Reason: Pain Rating 1-3 & Pre PT Stop: 11/28/22 11:04 Dexamethasone 6 mg/ Syringe 1.5 mls @ 1 mls/min IV DAILY JEREMIAH Stop: 11/30/22 09:02 Last Admin: 11/28/22 08:56 Dose: 1 mls/min Influenza Virus Vaccine Quadrival (Do Not Administer Flu Vaccine) 1 each N/A PRN PRN PRN Reason: Notification Stop: 12/27/22 11:03 Insulin Aspart (Insulin Aspart Per Unit Charge) 0 units SC ACHS [facility] Stop: 12/27/22 12:14 Last Admin: 11/28/22 08:43 Dose: 15 units Lorazepam (Lorazepam 0.5 Mg Tab) 0.5 mg PO Q8H PRN PRN Reason: Sedation/Anxiety Stop: 12/27/22 11:03 Lorazepam (Lorazepam 2 Mg/1 Ml Vial) 0.5 mg IV Q8H PRN PRN Reason: Sedation/Anxiety Stop: 12/27/22 11:03 Magnesium Hydroxide (Magnesium Hydroxide Susp 30 Ml Udc) 30 ml PO Q24H PRN PRN Reason: Constipation Stop: 12/27/22 11:03 Metoclopramide HCl (Metoclopramide Hcl Inj 5 Mg/Ml 2 Ml Vial) 10 mg IV Q6H PRN PRN Reason: Nausea &/or Vomiting Stop: 12/27/22 11:03 Miscellaneous (Carbohydrates For Hypoglycemia ) 15 - 30 gm PO UD PRN PRN Reason: Hypoglycemia Treatment Stop: 12/27/22 12:14 Miscellaneous (Carbohydrates For Hypoglycemia ) 15 - 30 gm PO UD PRN PRN Reason: Hypoglycemia Protocol Stop: 12/27/22 12:08 Miscellaneous Information (Pharmacy Glycemic Mgmt Consult) 1 each N/A UD PRN PRN Reason: Consult Stop: 12/27/22 11:03 Naloxone HCl (Naloxone Hcl 0.4 Mg/1 Ml Vial/Carp) 0.1 mg IV Q5M PRN PRN Reason: Oversedation/Resp depression Stop: 12/27/22 11:03 Nitroglycerin (Nitroglycerin Sl 0.4 Mg/Tab Tab) 0.4 mg SL UD PRN PRN Reason: cp Stop: 12/27/22 11:03 Ondansetron HCl (Ondansetron Inj 2 Mg/Ml 2 Ml Vial) 4 mg IV Q6H PRN PRN Reason: Nausea &/or Vomiting Stop: 12/27/22 11:03 Ondansetron HCl (Ondansetron 4 Mg Od Tab) 4 mg PO Q6H PRN PRN Reason: Nausea Stop: 12/27/22 11:03 Pneumococcal Polyvalent Vaccine (Do Not Administer Pneumococcal Vaccine) 1 each N/A PRN PRN PRN Reason: Notification Stop: 12/27/22 11:03 Polyethylene Glycol (Polyethylene (Miralax) 17 Gm Pack) 17 gm PO Q6 JEREMIAH Stop: 12/28/22 05:59 Last Admin: 11/28/22 05:20 Dose: 17 gm Pramipexole Dihydrochloride (Pramipexole Dihydrochlo 0.5 Mg Tab) 0.5 mg PO QPM JEREMIAH Stop: 12/27/22 20:59 Last Admin: 11/27/22 20:19 Dose: 0.5 mg Rosuvastatin Calcium (Rosuvastatin Calcium 10 Mg Tab) 10 mg PO QAM JEREMIAH Stop: 12/28/22 08:59 Last Admin: 11/28/22 08:55 Dose: 10 mg Senna/Docusate Sodium (Docusate Sodium/Senna 50/8.6mg Tab) 2 tab PO HS [facility] Stop: 12/27/22 20:59 Last Admin: 11/27/22 20:19 Dose: 2 tab Sodium Biphosphate/Sodium Phosphate (Sod Phosphate/Sod Biphosphate Enema 132 Ml Btl) 132 ml AR ONE PRN PRN Reason: Constipation Stop: 12/27/22 11:03 Tramadol HCl (Tramadol Hcl 50 Mg Tablet) 50 - 100 mg PO Q4H PRN PRN Reason: Moderate-Severe pain & Pre PT Stop: 12/27/22 11:03
--- NOTE | 2022-11-28 10:28 | Pharmacy Report ---
Pharmacy Glycemic Short Note 2 - Date of Service November 28, 2022 - Glycemic Short BSG Results (Last 24 hours): 11/27/22 11/27/22 11/27/22 11:51 16:53 20:11 Glucose POC Glucose 264 H 313 H* 289 H 11/27/22 11/28/22 11/28/22 23:46 03:58 06:12 Glucose 147 H POC Glucose 198 H 162 H 11/28/22 08:00 Glucose POC Glucose 161 H OUTPATIENT ANTIDIABETIC REGIMEN: * Insulin pump 2.7 units/hr 0494-5339 + 0493-7344; 3.0 units/hr 6072-1131 (total of 66 units/hr) ... CF 50; CR 12 * HbA1C = ~8% (patient reported) ASSESSMENT: * Patient's BSGs yesterday were [phone] mg/dL and overnight was 198-162 mg/dL. Fasting today is 161 mg/dL. * Patient received 102 units of insulin (55 units of basal and 27 units of bolus). Patient received 6 units of Novolog overnight. * Patient received dexamethasone 6 mg IV daily x 3 days * Will increase Lantus to 65 units today (55 units + extra 6 units from overnight + fasting still above goal). * Tighten CR. BACKGROUND * Ms Patel is an 82 y/o F with a PMH of T2Dm who presents for spinal surgery. Patient is POD 0 and received dex 12 mg IV intraoperatively. Pump was removed prior to surgery. * This pharmacist interviewed the patient and obtained above values from her insulin pump. It appears patient's regimen is very basal heavy. * Will start with weight-based stress of 3 Lantus + extra 20% for steroid coverage. * Novolog weight-based stress of 3 * overnight checks added. PLAN FOR INPATIENT GLYCEMIC CONTROL: * Basal insulin * Lantus 65 units SQ x 1 and re-evaluate tomorrow * Bolus insulin * NovoLog per scale ACHS or Q6hrs while NPO * Goal Range: Low 110 mg/dL - High 140 mg/dL * Correction Factor: 15 mg/dL/unit * Nutritional / Prandial insulin per carb ratio of 1 unit per 4 grams CHO consumed
--- NOTE | 2022-11-28 10:36 | Orthopedic Progress Note ---
Date of Service November 28, 2022 Assessment & Plan (1) Neurogenic claudication due to lumbar spinal stenosis: Plan: This time continue physical therapy monitor KHANH operatively discharge home in the next few days. Admission and Anticipated Discharge Date Admission Date: November 27, 2022 Subjective Back pain controlled leg pain improved Physical Exam Physical Exam: Patient is currently in bed. She is comfortable. Is constricted testing. Results & Data Vital Signs (Past 12 Hours) Vital Signs Temp Pulse Pulse Resp BP Pulse Ox O2 Del Method 11/28/22 08:00 Room Air 11/28/22 08:55 81 108/55 L 11/28/22 07:10 36.4 C L 61 18 114/63 95 Room Air 11/28/22 04:00 36.6 C 57 L 16 115/55 L 96 Room Air 11/27/22 23:50 36.6 C 85 18 115/58 L 98 Room Air Queries Orthopedic Spine Obesity: Yes
[2022-11-28] MEDS: DOCUSATE SODIUM/SENNA 50/8.6MG TAB PO SCH (20:18)
[2022-11-28] MEDS: PRAMIPEXOLE DIHYDROCHLO 0.5 MG TAB PO SCH (20:19)
[2022-11-29] MEDS: HYDROCODONE/ACETAMOPHEN 5/325MG TAB PO PRN ×2 (05:33→18:07)
[2022-11-29] MEDS: POLYETHYLENE (MIRALAX) 17 GM PACK PO SCH ×2 (05:33→12:12)
[2022-11-29 06:38] LABS: Hematocrit (blood only) 31.7 % (37.0-47.0); Hemoglobin 10.3 g/dl (12.0-16.0); Mean Corpuscular Hgb Conc 32.5 g/dL (32.0-36.0); Mean Corpuscular Volume 86.1 fL (80.0-100.0); Mean Platelet Volume 9.7 fL (9.4-12.4); Platelet Count 232 K/uL (130-400); RDW Coefficient of Variation 14.1 % (11.5-14.5); RDW Standard Deviation 43.8 fL (36.4-46.3); Red Blood Count 3.68 M/uL (4.20-5.40); White Blood Count 10.81 K/ul (4.8-10.8)
[2022-11-29 07:15] LABS: BUN Creatinine Ratio 36.1 (10-20); Calcium 8.9 mg/dl (8.6-10.3); Est GFR (African American) 76.6 ml/min; Est GFR (Non-African American) 66.1 ml/min; Potassium 4.3 mmol/L (3.5-5.1)
--- NOTE | 2022-11-29 07:31 | Pharmacy Report ---
Pharmacy Glycemic Short Note 2 - Date of Service November 29, 2022 - Glycemic Short BSG Results (Last 24 hours): 11/28/22 11/28/22 11/28/22 06:12 08:00 12:06 Glucose 147 H POC Glucose 161 H 218 H 11/28/22 11/28/22 11/29/22 16:40 20:09 05:31 Glucose 90 POC Glucose 171 H 190 H OUTPATIENT ANTIDIABETIC REGIMEN: * Insulin pump 2.7 units/hr 3664-1859 + 6355-9112; 3.0 units/hr 1918-2345 (total of 66 units/hr) ... CF 50; CR 12 * HbA1C = ~8% (patient reported) ASSESSMENT: 11/29 * Patient received total of 123 units of insulin yesterday, of which 65 units were basal * Fasting BSG trending down to 90 mg/dL, much improving therefore will decrease basal slightly since not yet at steady state with dosing * Continue same CF/CR for now - patient continues on IV dexamethasone 11/28 * Patient's BSGs yesterday were [phone] mg/dL and overnight was 198-162 mg/dL. Fasting today is 161 mg/dL. * Patient received 102 units of insulin (55 units of basal and 27 units of bolus). Patient received 6 units of Novolog overnight. * Patient received dexamethasone 6 mg IV daily x 3 days * Will increase Lantus to 65 units today (55 units + extra 6 units from overnight + fasting still above goal). * Tighten CR. BACKGROUND * Ms Patel is an 82 y/o F with a PMH of T2Dm who presents for spinal surgery. Patient is POD 0 and received dex 12 mg IV intraoperatively. Pump was removed prior to surgery. * This pharmacist interviewed the patient and obtained above values from her insulin pump. It appears patient's regimen is very basal heavy. * Will start with weight-based stress of 3 Lantus + extra 20% for steroid coverage. * Novolog weight-based stress of 3 * overnight checks added. PLAN FOR INPATIENT GLYCEMIC CONTROL: * Basal insulin * Lantus 55 units daily * Bolus insulin * NovoLog per scale ACHS or Q6hrs while NPO * Goal Range: Low 110 mg/dL - High 140 mg/dL * Correction Factor: 15 mg/dL/unit * Nutritional / Prandial insulin per carb ratio of 1 unit per 3 grams CHO consumed
[2022-11-29] MEDS: dexAMETHasone 6 MG in SYRINGE 0 ML IV SCH (07:50)
--- NOTE | 2022-11-29 08:52 | Orthopedic Progress Note ---
Date of Service November 29, 2022 Assessment & Plan (1) Neurogenic claudication due to lumbar spinal stenosis: Plan: jackeline is postoperative day 2 status post L4-S1 decompression instrumented fusion Dr. Figueroa. We will continue physical therapy today. Maintain KHANH drain. Continue with aggressive bowel regimen. Continue with pain control. Anticipate discharge home within the next 24 to 48 hours. Admission and Anticipated Discharge Date Admission Date: November 27, 2022 Brayan Chaparro is postoperative day 2 status post L4-S1 decompression and instrumented fusion by Dr. Figueroa. She has more back pain today. No radicular pain. She is passing flatus but no bowel movement yet. KHANH drain output last shift was 50 cc. Yesterday in physical therapy ambulating roughly 70 feet. Review of Systems Review of Systems: All systems reviewed & are unremarkable except as noted in HPI & below Physical Exam Physical Exam: She is up and ambulatory with the assistance of a walker to the restroom this morning. Lumbar dressing is clean dry and intact. Functioning KHANH drain noted. Calf soft nontender bilateral lower extremities. Strength is intact bilateral lower extremities Results & Data Vital Signs (Past 12 Hours) Vital Signs Temp Pulse Resp BP Pulse Ox O2 Del Method 11/29/22 07:16 36.6 C 63 16 122/64 96 Room Air
[2022-11-29] MEDS ORDERED: LANTUS PER UNIT CHARGE SC SCH (09:00)
[2022-11-29] MEDS: INSULIN ASPART PER UNIT CHARGE SC SCH ×4 (09:20→20:07)
[2022-11-29] MEDS: ROSUVASTATIN CALCIUM 10 MG TAB PO SCH (09:43)
[2022-11-29] MEDS: CALCIUM 600MG + VIT D 400 IU TAB PO SCH (09:43)
[2022-11-29] MEDS: ASPIRIN 81 MG ECTAB PO SCH (09:43)
[2022-11-29] MEDS: ATENOLOL 50 MG TABLET PO SCH (10:25)
--- NOTE | 2022-11-29 12:15 | Hospitalist Progress Note ---
Date of Service November 29, 2022 Assessment & Plan (1) Neurogenic claudication due to lumbar spinal stenosis: Plan: Post op consultation for Lumbar decompression surgery and fusion L4-S1 POD # [address] Figueroa tolerated procedure well pain/wound management per ortho, KHANH drain management per ortho encourage incentive spirometry (2) Acute postoperative anemia due to expected blood loss: Plan: preop hgb 13.0 post op day 2, hgb 10.3, improving monitor closely and drainage output, (3) Paroxysmal atrial fibrillation: Plan: Eliquis resume at discretion of Dr. Figueroa, recommend discuss with Dr. Figueroa prior to D/C continue atenolol (4) CAD (coronary artery disease): Plan: Continue asa and atenolol (5) Diabetes mellitus, type 2: Plan: Glycemic pharmacy on board, appreciate management Continue Lantus/NovoLog per protocol Patient did receive dexamethasone today A1c 7.9, given age goal less than 8 (6) Aortic stenosis: Plan: noted echo findings of mild aortic stenosis euvolemic on exam (7) Hypertension: Plan: BP improved resume enalapril and continue atenolol DVT ppx: SCDS for now, will need to resume eliquis at discretion of ortho Pt was seen and examined in collaboration with Dr. Beaulieu, please see addendum Thank you for this consultation. We will follow the patient with you during their hospital stay. You can reach a member of the [facility] Hospitalist Team 04/12 via hospitalist role on tiger text. Admission and Anticipated Discharge Date Admission Date: November 27, 2022 Supervising Physician Co-Signing Physician Notes Patient is seen and examined at bedside. States having increased pain at surgical site when compared to yesterday. Had physical therapy this morning. No BM today. Denies any chest pain, nausea, vomiting abdominal pain. No bowel movement today. On exam patient is obese, no apparent distress, normocephalic/atraumatic, EOMI, normal breath sounds, clear to auscultation, S1- S2,+ murmur, no pedal edema, abdomen soft, nontender, normal bowel sounds,+back- surgical site in dressing+ drain, alert, awake, oriented, grossly no focal deficits. S/P lumbar decompression fusion surgery by Dr. Figueroa for neurogenic claudication of lumbar spinal stenosis. Postoperative acute blood loss anemia. Monitor CBC. No transfusion of PRBCs needed currently. Resume anticoagulation as able for paroxysmal atrial fibrillation. Continue bowel regimen to prevent constipation. Continue insulin while hospitalized for management of diabetes mellitus. Blood pressure stable. Agree with holding enalapril for now. I personally reviewed the record. Patient is interviewed and examined at bedside. Patient's care is coordinated with Sandy Meyers PA-C. Please refer to the documentation above for details of patient's presentation and for discussion of other issues. Subjective Patient was seen and examined in room 302. Follow-up lumbar decompression fusion by Dr. Figueroa. She is feeling better today and denies any lightheadedness or dizziness. She denies fever, chills, sweats, chest pain, shortness breath, abdominal pain. She is tolerating therapy. Review of Systems Review of Systems: All systems reviewed & are unremarkable except as noted in HPI & below Physical Exam Physical Exam: Gen: WD/WN, sitting up in bed side chair, NAD, A&O x3 HEENT: Normocephalic, atraumatic, conjunctivae moist, sclerae anicteric, mucous membranes moist. Lung: Clear to Auscultation bilaterally, no wheezes/rales/rhonchi Heart: Regular rate, regular rhythm, 2/6 savanna noted rusb, no rubs, or gallops Abdomen: Soft, NT, ND +BS x 4 Extremities: No edema, + dressing, KHANH drain with sersosang drainage Skin: Warm, no rash, negative turgor. Results & Data Results & Data Vital Signs (Past 12 Hours) Vital Signs Temp Pulse Resp BP Pulse Ox O2 Del Method 11/29/22 09:41 71 146/63 H 11/29/22 07:16 36.6 C 63 16 122/64 96 Room Air Laboratory Results Short CBC 11/29/22 Range/Units 05:31 WBC 10.81 H (4.8-10.8) K/ul Hgb 10.3 L (12.0-16.0) g/dl Hct 31.7 L (37.0-47.0) % Plt Count 232 (130-400) K/uL BMP 11/29/22 05:31 Sodium 139 Potassium 4.3 Chloride 105 Carbon Dioxide 30 BUN 30 H Creatinine 0.83 Glucose 90 Calcium 8.9
[2022-11-29] MEDS: PRAMIPEXOLE DIHYDROCHLO 0.5 MG TAB PO SCH (16:14)
[2022-11-29] MEDS ORDERED: PRAMIPEXOLE DIHYDROCHLO 0.25 MG TAB PO PRN (16:20)
[2022-11-29] MEDS: DOCUSATE SODIUM/SENNA 50/8.6MG TAB PO SCH (20:10)
[2022-11-30] MEDS: HYDROCODONE/ACETAMOPHEN 5/325MG TAB PO PRN ×2 (04:22→12:35)
[2022-11-30 07:33] LABS: Hematocrit (blood only) 31.6 % (37.0-47.0); Hemoglobin 10.5 g/dl (12.0-16.0); Mean Corpuscular Hemoglobin 28.2 pg (25.0-34.0); Mean Corpuscular Hgb Conc 33.2 g/dL (32.0-36.0); Mean Corpuscular Volume 84.9 fL (80.0-100.0); Mean Platelet Volume 9.5 fL (9.4-12.4); Platelet Count 238 K/uL (130-400); RDW Coefficient of Variation 14.1 % (11.5-14.5); RDW Standard Deviation 43.7 fL (36.4-46.3); Red Blood Count 3.72 M/uL (4.20-5.40)
[2022-11-30 07:50] LABS: BUN Creatinine Ratio 35.7 (10-20); Calcium 8.9 mg/dl (8.6-10.3); Creatinine Clr Calc Pharmacy 59.3 ml/min; Est GFR (African American) 75.5 ml/min; Est GFR (Non-African American) 65.2 ml/min; Potassium 4.2 mmol/L (3.5-5.1)
--- NOTE | 2022-11-30 08:21 | Discharge Summary ---
Date of Service November 30, 2022 Admission HPI Per Admitting Provider This is an 82-year-old female who presents with persistent back and leg pain after failing since course of nonoperative care she is here for surgical invention. Principal Diagnosis Lumbar spinal stenosis with neurogenic claudication Discharge Data Allergies Allergy/AdvReac Type Severity Reaction Status Date / Time oxycodone [From Percocet] Allergy Mild feels like Verified 11/27/22 06:24 bugs are crawling Consultations 11/27/22 11:04 Consult Hospitalist Routine Procedures Performed Operation Date: 11/27/22 07:45 Actual Procedures p L4-S1 Decompression and Fusion, Spinal Cord Monitoring - Raúl Figueroa DO Ordered Studies 11/27/22 07:45 FL lumbar spine 2-3V Routine Hospital Course (1) Neurogenic claudication due to lumbar spinal stenosis: Patient went lumbar decompression fusion tolerated this well was taken to the orthopedic for postop labor postop day 1 she was up and ambulating breast postop day #2 postop day #3 pain was well controlled KHANH drain decreasing probably. Excellent strength testing. Simply discharged home. Discharge orders instructions found in chart for further review. Total Time Total Time Spent Total Time Spent (In Minutes): 20 minutes Discharge Plan Discharge Items Patient Disposition: Home - Self-Care Reason For Visit: Lumbar Region Spinal Stenosis with Neurogenic Maureen Discharge Diagnosis: Lumbar spinal stenosis with neurogenic claudication Activity: As commented below Non-emergency contact: Primary Care Provider Call non-emergency contact if: you have any medication questions Follow-up/Referrals: PCP,NO [Physician] - Diet: Regular Addtl Attending Provider Instructions: ACTIVITY RECOMMENDATIONS: SELF CARE INSTRUCTIONS AFTER THORACIC/LUMBAR FUSIONS 1. You may walk to your tolerance. It is good exercise for your legs and back. Expect some back and intermittent leg aches and pains. 2. You may perform "counter-top" level activities (make a sandwich, violet with a project, etc.). 3. No bending or lifting of more than 10 pounds or back twisting of any nature (roll like a log when turning in bed). 4. You may ride in a car for 20-30 minutes at a time. No driving until after your first visit with your doctor. 5. Frequent changes of position and restricting sitting to 30 minutes at a time will help limit the amount of back spasms and stiffness you may experience. 6. You may discontinue the use of ambulatory aids (cane, crutches, etc.) once your strength and confidence allow. 7. You may bender machine operator the shower and let water strike your incision when you arrive home at least once daily. Do not take a tub bath, sit in a hot tub or go into a swimming pool until after your first recheck in the office. SPECIAL CARE INSTRUCTIONS: VERY IMPORTANT TO READ AND REVIEW A. Your surgical incision has been closed with a cosmetic suture under the skin that will dissolve in about 6 weeks. In 14 days, you can use a pair of clean scissors and cut the suture that is left outside of the skin at the ends of your incision. 1. The small skin tapes can be removed 7 days after surgery if they have not fallen off by that point. 2. You may keep the wound open to air as much as possible to promote healing after post-op day number 5 unless told otherwise by your doctor. 3. If you think the wound looks like it is becoming infected (redness or worsening drainage) and/or you are experiencing fever, chill or worsening back pain and muscle spasms, contact the office so that we may evaluate you as soon as possible. B. Complications are uncommon, but please contact us if you have any signs or symptoms of: 1. wound infection (fever higher than 102.5 degrees F, redness, separation of wound, drainage, or increasing pain from the incision) 2. blood clots in legs (pain, swelling, redness and warmth in legs) 3. urinary tract infection (fever higher than 102.5 degrees F, burning upon urination or increased frequency of urination) 4. nerve problems (inability to walk on your toes or heels, numbness, loss of bowel or bladder control) 5. any other symptoms that concern you C. Please call the office at if you have any concerns or questions about your operation or recovery. D. No smoking! Smoking drastically decreases the chance of a solid fusion. E. Do not take any anti-inflammatory medications (Indocin, Advil, Motrin, Aspirin, Naprosyn, etc.) as these may inhibit the chance of a solid fusion. Tylenol is okay to take for pain. MANAGING PAIN AFTER SPINAL SURGERY 1. Narcotic medication is intended for short-term use and will be provided for surgical pain. Surgical pain usually lasts for a period of 4-6 weeks. Narcotic medication includes Percocet, Vicodin, Darvocet, Tylenol #3 or Lortab. 2. Longer-term pain is more appropriately treated with non-narcotic medication such as Tylenol ES. 3. Muscle spasm is not appropriately treated with narcotics. Muscle relaxers such as Soma, Flexeril or Skelaxin can be used along with Tylenol ES. 4. Remember that we all live with some "aches and pains". This is not unusual or uncommon after an injury or as we get older. a. Back pain is expected and may include muscle spasms for 4 to 6 weeks after surgery. The pain should gradually improve. If the pain worsens for no apparent reason, please contact the office. b. Intermittent leg pain may also be experienced and should not be concerned about unless it worsens for no apparent reason. If so, please contact the office. 5. We will provide appropriate medication within the normal guidelines of their prescribed use. We will also be very cautious and aware of potential abuse and extended duration of patients' medication needs. a. Pain medications are for your comfort and to assist with sleep and rest so that the tissue can heal. They are not provided in order to return to normal activity and should not be used through the day. To do so or worsening pain at night can result from ongoing tissue damage and development of tolerance to the prescribed medicine. 6. Please allow 2-3 days to process refills. Prescriptions will not be mailed but must be picked up at the office. FOLLOW UP VISIT: Keep your scheduled follow-up appointment. Any questions, please call the office at . Pending Studies at Discharge: No Stand-Alone Forms: [facility], Smoking Cessation Medications and DC Order Prescriptions: New hydrocodone-acetaminophen 5-325 mg tablet 1 tab PO Q6H PRN (Reason: pain) Qty: 30 0RF tramadol 50 mg tablet 50 mg PO Q6H PRN (Reason: pain, moderate) Qty: 30 0RF Continued calcium 600 mg Capsule 600 mg PO QAM aspirin 81 mg Tablet,Delayed Release (Dr/Ec) 81 mg PO QAM insulin aspart U-100 [Novolog U-100 Insulin aspart] 100 unit/mL Solution 1 sliding scale dose SUBCUT USEASDIRECTD Patient Comments: insulin pump nitroglycerin 0.4 mg Tablet, Sublingual 0.4 mg sublingual UD PRN (Reason: cp) pramipexole 0.25 mg Tablet 0.5 mg PO QPM atenolol 50 mg Tablet 50 mg PO QAM ramipril 10 mg Capsule 10 mg PO QAM omega-3 fatty acids Capsule 2,000 mg PO QAM rosuvastatin [Crestor] 10 mg Tablet 10 mg PO QAM Eliquis 5 mg Tablet 5 mg PO BID Discharge Orders: Discharge Order (Routine); Ordered 11/30/22 Ordered By: Raúl Figueroa Admission Data Admit Date/Time: 11/27/22 09:54 Attending Provider: Raúl Figueroa Admit Provider: Raúl Figueroa Primary Care Provider: Kymberly Lawson Other Providers: Miguelina Green ; Cristobal Beaulieu ; Radha Casas
--- NOTE | 2022-11-30 08:24 | Hospitalist Progress Note ---
Date of Service November 30, 2022 Assessment & Plan (1) Neurogenic claudication due to lumbar spinal stenosis: Plan: Post op consultation for Lumbar decompression surgery and fusion L4-S1 POD # [address] Figueroa tolerated procedure well pain/wound management per ortho, KHANH drain management per ortho encourage incentive spirometry (2) Acute postoperative anemia due to expected blood loss: Plan: hgb stable - 10.5 today from 10.3 yesterday monitor closely and drainage output (3) Paroxysmal atrial fibrillation: Plan: Eliquis Okay to resume Eliquis Sunday, 12/[address] Figueroa continue atenolol (4) CAD (coronary artery disease): Plan: Continue asa and atenolol (5) Diabetes mellitus, type 2: Plan: Glycemic pharmacy on board, appreciate management Continue Lantus/NovoLog per protocol Patient did receive dexamethasone today A1c 7.9, given age goal less than 8 (6) Aortic stenosis: Plan: noted echo findings of mild aortic stenosis euvolemic on exam (7) Hypertension: Plan: BP improved resume enalapril and continue atenolol DVT ppx: SCDS for now, will need to resume eliquis at discretion of ortho Pt was seen and examined in collaboration with Dr. Beaulieu, please see addendum Thank you for this consultation. We will follow the patient with you during their hospital stay. You can reach a member of the [facility] Hospitalist Team 04/12 via hospitalist role on tiger text. I spent a total of 45 minutes coordinating, documenting, and providing care for this patient excluding time spent in the performance of separately billed services. Admission and Anticipated Discharge Date Admission Date: November 27, 2022 Supervising Physician Co-Signing Physician Notes Patient is seen and examined at bedside. States feeling better today. Back pain at surgical site is controlled. Had bowel movement today. No new complaints. Eager to get discharged home today. Denies any chest pain, nausea, vomiting abdominal pain. On exam patient is obese, no apparent distress, normocephalic/atraumatic, EOMI, normal breath sounds, clear to auscultation, S1- S2,+ murmur, no pedal edema, abdomen soft, nontender, normal bowel sounds,+back- surgical site in dressing+ drain, alert, awake, oriented, grossly no focal deficits. S/P lumbar decompression fusion surgery by Dr. Figueroa for neurogenic claudication of lumbar spinal stenosis. Postoperative acute blood loss anemia. Monitor CBC. Did well postoperatively. Plan to resume eliquis today as per Orthopedic surgery. Continue bowel regimen to prevent constipation. Continue insulin while hospitalized for management of diabetes mellitus. Blood pressure stable. Resume enalapril. I personally reviewed the record. Patient is interviewed and examined at bedside. Patient's care is coordinated with Radha Casas PA-C. Please refer to the documentation above for details of patient's presentation and for discussion of other issues. Subjective Patient was seen and examined in room 302 in follow-up lumbar decompression fusion by Dr. Figueroa. Patient is feeling better and ambulating around her room, preparing for discharge. Some surgical site pain but participating with therapy without issue. Denies any chest pain, shortness of breath, nausea, vomiting, abdominal pain, dysuria. Urinating without issue, passing flatus. Plan to be discharged today by primary service. Review of Systems Review of Systems: At least ten systems reviewed and negative except as noted in the HPI. Physical Exam Physical Exam: Gen: WD/WN, NAD, standing near window, A&Ox3 HEENT: Normocephalic, atraumatic, conjunctivae moist, sclerae anicteric, mucous membranes moist Lung: Clear to Auscultation bilaterally, no wheezes/rales/rhonchi Heart: Regular rate, regular rhythm, + systolic murmur, no rubs, or gallops Abdomen: Soft, NT, ND +BS x 4 Extremities:+Spinal dressing c/d/i, KHANH drain vislualized, no edema Skin: Warm, no rash Results & Data Results & Data Vital Signs (Past 12 Hours) Vital Signs Temp Pulse Resp BP Pulse Ox O2 Del Method 11/30/22 07:47 36.6 C 64 16 148/69 H 96 Room Air Laboratory Results Short CBC 11/30/22 Range/Units 07:03 WBC 11.40 H (4.8-10.8) K/ul Hgb 10.5 L (12.0-16.0) g/dl Hct 31.6 L (37.0-47.0) % Plt Count 238 (130-400) K/uL BMP 11/30/22 07:03 Sodium 137 Potassium 4.2 Chloride 104 Carbon Dioxide 29 BUN 30 H Creatinine 0.84 Glucose 89 Calcium 8.9 Diagnostic Findings Lumbar Spine X-Ray 11/27/22 07:45 FL lumbar spine 2-3V CLINICAL HISTORY: L4-S1 DECOMPRESSION FUSION WITH INTERBODY COMPARISON STUDY: None. FLUOROSCOPY TIME: 25 seconds FLUOROSCOPY IMAGES: 2 Ka,r: 17.3 mGy FINDINGS: Posterior decompression and fusion from L4 through S1 with pedicle screws and rods. The hardware appears intact. An L4-[address] IMPRESSION: Fluoroscopic assistance as above. ACT 112: Negative or not required by law. Electronically signed by: Christophe Arroyo M.D. 11/27/2022 10:15 AM
[2022-11-30] MEDS ORDERED: INSULIN ASPART 100 UNITS/ML VIAL SC PRN (08:45)
[2022-11-30] MEDS ORDERED: INSULIN, Rapid-Acting PUMP SCH (09:00)
[2022-11-30] MEDS ORDERED: LANTUS PER UNIT CHARGE SC SCH (09:00)
[2022-11-30] MEDS: INSULIN ASPART PER UNIT CHARGE SC SCH (09:06)
[2022-11-30] MEDS: CALCIUM 600MG + VIT D 400 IU TAB PO SCH (09:24)
[2022-11-30] MEDS: ROSUVASTATIN CALCIUM 10 MG TAB PO SCH (09:24)
[2022-11-30] MEDS: dexAMETHasone 6 MG in SYRINGE 0 ML IV SCH (09:24)
[2022-11-30] MEDS: ATENOLOL 50 MG TABLET PO SCH (09:25)
[2022-11-30] MEDS: ASPIRIN 81 MG ECTAB PO SCH (09:25)
--- NOTE | 2022-12-04 08:30 | Coding Query ---
BMI To promote full compliance with coding requirements relating to patient care, physician participation is requested in all cases of director building uncertainty. Please assist us with the question(s) below: Please place an X within the parenthesis (x). If other, please document: BMI in excess of 34 was documented in this record for this patient. If the BMI is significant, please check the box that provides a more specific associated diagnosis: ( ) Overweight/Obese (x ) Obesity ( ) Morbid obesity ( ) Obesity Hypoventilation Syndrome (OHS) ( ) Heathy weight, not significant ( ) Underweight/Thin ( ) Other, please specify Thank you Richa JOVEL
== END 2022-11-30 13:02 | disposition home or self-care (01) | DRG 454 ==
LOC: ASU 06:06 → 3E 09:54